=== PATIENT | male | born 1995 | race Caucasian/White ===

== ENCOUNTER 2016-05-30 15:08 | Emergency (ER) | payer MEDICAID ==
[~2016-05-30] VITALS: Wt 86.5 kg
[~2016-05-30 15:08] MED LIST: DAYQUIL; LORA1TAB PO; MECL25TA2 PO
[2016-05-30] MEDS ORDERED: KETOROLAC 15 MG INJ IM STA (16:24)
[2016-05-30] MEDS ORDERED: CYCL-319 PO (16:41)
[2016-05-30] MEDS ORDERED: NAPR-688 PO (16:41)
--- NOTE | 2016-05-30 16:45 | ERD ---
ER Documentation Chief Complaint Date/Time DATE: 05/30/16 TIME: 16:44 Chief Complaint Low back pain for the past few months. no recent trauma just lifting HPI This is a 20-year-old male presenting to the emergency room complaining of bilateral lower back pain for the past 3 months. Patient states the pain is 8 out of 10. He states that he has been to the chiropractor 6 times they have evaluated with x-ray, patient states there is no fracture. Patient states he 400 mg of ibuprofen 2 hours prior to being seen without any relief. Patient denies any saddle anesthesia, bladder or bowel incontinence, ROS All systems reviewed and are negative except as per history of present illness. Medications Home Meds Active Scripts Naproxen* (Naproxen*) 500 Mg Tablet, 500 MG PO BID Y for PAIN, #30 TAB Prov:DERIK ZALDIVAR PA-C 05/30/16 Cyclobenzaprine Hcl* (Cyclobenzaprine Hcl*) 10 Mg Tablet, 10 MG PO TID, #15 TAB Prov:DERIK ZALDIVAR PA-C 05/30/16 Lorazepam* (Lorazepam*) 1 Mg Tablet, 1 MG PO Q8, #10 TAB Prov:WASHINGTON LUNA PA-C 11/30/15 Meclizine Hcl* (Antivert*) 25 Mg Tablet, 25 MG PO Q6H Y for DIZZINESS, #15 TAB Prov:KONRAD CLAYTON DO 10/26/15 Reported Medications [Dayquil] No Conflict Check 03/15/14 Allergies Allergies: Coded Allergies: No Known Allergy (Unverified , 11/30/15) PMhx/Soc History of Surgery: No Anesthesia Reaction: No Hx Neurological Disorder: No Hx Respiratory Disorders: No Hx Cardiac Disorders: Yes (heart murmur when he was a kid) Hx Psychiatric Problems: No Hx Miscellaneous Medical Probl: No Hx Alcohol Use: Yes (occassional) Hx Substance Use: No Hx Tobacco Use: No Smoking Status: Never smoker Physical Exam Vitals Vital Signs Date Time Temp Pulse Resp B/P Pulse Ox O2 Delivery O2 Flow Rate FiO2 05/30/16 15:13 98.5 61 20 130/60 98 Physical Exam GENERAL: WD/WN, in no apparent distress, non-toxic appearing HENT: NC/AT EYES: Conjunctiva normal NECK: Supple PULM: Normal labored breathing CV: Good capillary refill GI: Non-distended, no guarding BACK: no deformities noted, normal spinal curvature, TTP on lumbar region, non- tender on spine midline EXT: No clubbing, cyanosis, or edema NEURO: Moves on all fours, sensation intact, normal gait SKIN: intact PSYCH: Normal mood Results 24 hrs Current Medications Medications (Trade) Dose Ordered Sig/Lucie Route PRN Reason Start Time Stop Time Status Last Admin Dose Admin Ketorolac Tromethamine (Toradol) 15 mg ONCE STAT IM 05/30/16 16:24 05/30/16 16:25 DC 05/30/16 16:34 Procedures/MDM 20-year-old male presents to the ER with lumbar back pain and muscle spasms, low suspicion for spinal abscess, vertebral fracture, cauda equina syndrome, spinal stenosis due to physical examination. Patient was nontender on spine midline, patient ambulating well. This likely due to strain. I have discussed with patient that he is suitable to follow-up with the primary care physician to get a referral to see a orthopedist and physical therapist. In the ED patient was given 50 mg Toradol injection, a prescription for naproxen and Flexeril was provided. Patient is neurovascularly intact. Prescriptions [] was given to patient, discussed to return to the ED if not improving as expected or follow-up with a primary care physician. Patient understood and agreed with this plan. Departure Diagnosis: Primary Impression: Back pain Back pain location: low back pain Chronicity: chronic Back pain laterality : bilateral Sciatica presence: without sciatica Qualified Code: M54.5 - Chronic bilateral low back pain without sciatica Condition: Stable Patient Instructions: Back Basics: A Healthy Spine, Back Care Tips, Back Exercises, Lumbar, Back Pain (Acute Or Chronic), Muscle Spasm Additional Instructions: FOLLOW UP WITH YOUR PRIMARY CARE PHYSICIAN TOMORROW.Return to this facility if you are not improving as expected. Take all medicines as directed. Return to this facility if you are not improving as expected. You have been given a medicine which may cause drowsiness.DO NOT DRIVE OR OPERATE DANGEROUS MACHINERY while taking this medicine! DERIK ZALDIVAR PA-C May 30, 2016 16:45
[2016-05-30 17:05] VITALS: BP 128/60; PULSE 71; RESP 20; TEMP 98.5
== END 2016-05-30 17:14 | disposition home or self-care (01) ==
LOC: FTE 15:08
DX: M54.5 Low back pain (principal)
CPT/HCPCS: 96372; J1885; Z7502

== ENCOUNTER 2016-06-07 14:54 | Emergency (ER) | payer MEDICAID ==
[~2016-06-07] VITALS: Wt 87.0 kg
[~2016-06-07 14:54] MED LIST changes: +CYCL-319 PO; +NAPR-688 PO
[2016-06-07] MEDS ORDERED: KETOROLAC 60 MG INJ IM STA (15:22)
[2016-06-07] MEDS ORDERED: HYDROCODONE/APAP (5/325) TAB PO ONE (15:30)
--- NOTE | 2016-06-07 16:16 | RADRPT ---
PROCEDURE: XR Lumbar Spine. CLINICAL INDICATION: Low back pain. TECHNIQUE: 3 views of the lumbar spine available for review COMPARISON: None available FINDINGS: There is normal mineralization, architecture and alignment. No fractures or osseous lesions are nalini ntified. No subluxation is identified. The disk spaces are unremarkable. The facet joints are unr emarkable. The soft tissues are unremarkable. IMPRESSION: Unremarkable lumbar spine x-ray. RPTAT: [facility] .Kevin Michaels MD, MD Date Time Electronically viewed and signed by .Kevin Michaels MD, on 06/07/2016 16:15 .B/
[2016-06-07] MEDS ORDERED: TRAM50TA2 PO ×2 (16:20→18:49)
[2016-06-07] MEDS ORDERED: IBUP800T25 PO ×2 (16:20→18:49)
--- NOTE | 2016-06-07 16:23 | ERD ---
ER Documentation Chief Complaint Date/Time DATE: 06/07/16 TIME: 16:21 Chief Complaint back pain while lifting weights today x20min ago HPI 20-year-old male complains of acute low back pain for last hour after lifting weights at the gym. He is doing leg presses. He was seen here last week for pain after working and repetitive motion and was improving with medication until he went to the gym today. Denies any bowel bladder incontinence, weakness , radiation, urinary complaints, fevers ROS All systems reviewed and are negative except as per history of present illness. Medications Home Meds Active Scripts Tramadol HCl (Tramadol HCl) 50 Mg Tablet, 50 MG PO Q4 Y for PAIN, #20 TAB Prov:DOUG JACOBS MD 06/07/16 Ibuprofen* (Motrin*) 800 Mg Tab, 800 MG PO Q6, #30 TAB Prov:DOUG JACOBS MD 06/07/16 Naproxen* (Naproxen*) 500 Mg Tablet, 500 MG PO BID Y for PAIN, #30 TAB Prov:DERIK ZALDIVAR PA-C 05/30/16 Cyclobenzaprine Hcl* (Cyclobenzaprine Hcl*) 10 Mg Tablet, 10 MG PO TID, #15 TAB Prov:DERIK ZALDIVAR PA-C 05/30/16 Lorazepam* (Lorazepam*) 1 Mg Tablet, 1 MG PO Q8, #10 TAB Prov:WASHINGTON LUNA PA-C 11/30/15 Meclizine Hcl* (Antivert*) 25 Mg Tablet, 25 MG PO Q6H Y for DIZZINESS, #15 TAB Prov:KONRAD CLAYTON DO 10/26/15 Reported Medications [Dayquil] No Conflict Check 03/15/14 Allergies Allergies: Coded Allergies: No Known Allergy (Unverified , 11/30/15) PMhx/Soc History of Surgery: No Anesthesia Reaction: No Hx Neurological Disorder: No Hx Respiratory Disorders: No Hx Cardiac Disorders: Yes (heart murmur when he was a kid) Hx Psychiatric Problems: No Hx Miscellaneous Medical Probl: No Hx Alcohol Use: Yes (occassional) Hx Substance Use: No Hx Tobacco Use: No Physical Exam Vitals Vital Signs Date Time Temp Pulse Resp B/P Pulse Ox O2 Delivery O2 Flow Rate FiO2 06/07/16 14:58 98.1 105 25 145/71 98 Physical Exam Const: [] Alert, [id number]. Head: Atraumatic Eyes: Normal Conjunctiva ENT: Normal External Ears, Nose and Mouth. Neck: Full range of motion..~ No meningismus. Resp: Clear to auscultation bilaterally Cardio: Regular rate and rhythm, no murmurs Abd: Soft, non tender, non distended. Normal bowel sounds Skin: No petechiae or rashes Back: No midline or flank tenderness there is some tenderness diffusely in L4 -L5 area and sacral area. There is no appreciable midline tenderness or deformities. Patient has normal gait with no appreciable weakness. Patient has mild bilateral straight leg raise. Ext: No cyanosis, or edema Neur: Awake and alert Psych: Normal Mood and Affect Results 24 hrs Current Medications Medications (Trade) Dose Ordered Sig/Lucie Route PRN Reason Start Time Stop Time Status Last Admin Dose Admin Ketorolac Tromethamine (Toradol) 60 mg ONCE STAT IM 06/07/16 15:22 06/07/16 15:24 DC 06/07/16 15:31 Acetaminophen/ Hydrocodone Bitart (Given (5/325)) 1 tab ONCE ONCE PO 06/07/16 15:30 06/07/16 15:31 DC 06/07/16 15:31 Procedures/MDM Patient was given Toradol 60 mg IM and Given 5 mg by mouth. X-ray LS-Spine 3V Interpreted by me: Bones: No fracture, or lytic lesions Joints: No dislocation Foreign body: None. Impression abnormal lumbar spine x-ray Patient had signs and symptoms of acute lumbar strain without evidence of epidural abscess, cauda equina syndrome, fracture, dislocation, neurologic deficit. He will be treated with tramadol and ibuprofen instructions for back exercises. Patient is advised to follow-up with his primary doctor for possible referral or further evaluation and treatment return for fevers, weakness, new or worsening symptoms as directed after instructions were Departure Diagnosis: Primary Impression: Back pain Back pain location: low back pain Chronicity: acute Back pain laterality: bilateral Sciatica presence: without sciatica Qualified Code: M54.5 - Acute bilateral low back pain without sciatica Condition: Stable Patient Instructions: Back Exercises, Lumbar, Back Pain (Acute Or Chronic) Additional Instructions: X-ray read as normal. Likely sprain. Recommend stretching and rest at home. Recheck with primary doctor possibly orthopedist for some pain and further treatment. DOUG JACOBS MD Jun 07, 2016 16:23
[2016-06-07 19:30] VITALS: BP 124/77; PULSE 88; RESP 18; TEMP 98.3
== END 2016-06-07 20:49 | disposition home or self-care (01) ==
LOC: FTE 14:54
DX: S39.92XA Unspecified injury of lower back, initial encounter (principal); X50.0XXA Overexertion from strenuous movement or load, initial encounter; Y92.9 Unspecified place or not applicable
CPT/HCPCS: 72100; 96372; J1885; Z7502; Z7610

== ENCOUNTER 2016-07-19 10:54 | Emergency (ER) | payer MEDICAID ==
[~2016-07-19] VITALS: Ht 157.5 cm; Wt 78.9 kg
[~2016-07-19 10:54] MED LIST changes: +IBUP800T25 PO; +TRAM50TA2 PO
[2016-07-19 11:04] VITALS: Ht 157.5 cm; Wt 78.9 kg
[2016-07-19] MEDS ORDERED: ACETAMINOPHEN 500 MG TAB PO STA (13:22)
[2016-07-19] MEDS ORDERED: LIDOCAINE 2% VISC 15 ML CUP PO ONE (13:30)
[2016-07-19] MEDS ORDERED: TYL500 PO (14:30)
[2016-07-19] MEDS ORDERED: D-ME473S18 PO (14:30)
--- NOTE | 2016-07-19 14:38 | ERD ---
ER Documentation Chief Complaint Date/Time DATE: 07/19/16 TIME: 14:37 Chief Complaint HPI This is a 20-year-old male presents to the ER with a sore throat, cough, runny nose, headache, fever that started 2 days ago. Patient has been taking DayQuil for his symptoms and states that this helped however this morning his throat was hurting a lot so he decided not to go to work. Patient denies any chest pain or shortness of breath. There are no sick contacts at home. ROS 12 point review of systems was done, all negative except per HPI. Medications Home Meds Active Scripts Acetaminophen* (Tylenol*) 500 Mg Tab, 1000 MG PO Q8H Y for PAIN AND OR ELEVATED TEMP for 3 Days, TAB Prov:RENNY WEBB 07/19/16 Dextromethorphan Hb-Promethazine Hcl (Promethazine DM Syrup) 473 Ml Syrup, 10 ML PO Q6H Y for COUGH, #4 OZ Prov:RENNY WEBB 07/19/16 Ibuprofen* (Motrin*) 800 Mg Tab, 800 MG PO Q6, #30 TAB Prov:DOUG JACOBS MD 06/07/16 Tramadol HCl (Tramadol HCl) 50 Mg Tablet, 50 MG PO Q4 Y for PAIN, #20 TAB Prov:DOUG JACOBS MD 06/07/16 Naproxen* (Naproxen*) 500 Mg Tablet, 500 MG PO BID Y for PAIN, #30 TAB Prov:DERIK ZALDIVAR PA-C 05/30/16 Cyclobenzaprine Hcl* (Cyclobenzaprine Hcl*) 10 Mg Tablet, 10 MG PO TID, #15 TAB Prov:DERIK ZALDIVAR PA-C 05/30/16 Lorazepam* (Lorazepam*) 1 Mg Tablet, 1 MG PO Q8, #10 TAB Prov:WASHINGTON LUNA PA-C 11/30/15 Meclizine Hcl* (Antivert*) 25 Mg Tablet, 25 MG PO Q6H Y for DIZZINESS, #15 TAB Prov:KONRAD CLAYTON DO 10/26/15 Reported Medications [Dayquil] No Conflict Check 03/15/14 Allergies Allergies: Coded Allergies: No Known Allergy (Unverified , 11/30/15) PMhx/Soc History of Surgery: No Anesthesia Reaction: No Hx Neurological Disorder: No Hx Respiratory Disorders: No Hx Cardiac Disorders: Yes (heart murmur when he was a kid) Hx Psychiatric Problems: No Hx Miscellaneous Medical Probl: No Hx Alcohol Use: Yes (occassional) Hx Substance Use: No Hx Tobacco Use: No Physical Exam Vitals Vital Signs Date Time Temp Pulse Resp B/P Pulse Ox O2 Delivery O2 Flow Rate FiO2 07/19/16 11:04 99.2 67 20 137/67 99 Physical Exam GENERAL: The patient is well-developed, well-nourished, in no acute distress. NECK: Cervical spine is non tender with no step off. Supple, no nuchal rigidity HEENT: Atraumatic. Pupils equal, round and reactive to light. Extraocular muscles are grossly intact. Conjunctivae pink, no discharge. Bilateral tympanic membranes are clear with no evidence of erythema, effusion or dulling of the light reflex. Tonsilar erythema with no exudates or uvular deviation. Clear rhinorrhea. RESPIRATORY: Clear to auscultation bilaterally. There are no rales, wheezes or rhonchi. HEART: Regular rate and rhythm. No murmurs, clicks, rubs or gallops. EXTREMITIES: No clubbing or cyanosis. Full range of motion. Grossly neurovascularly intact. NEUROLOGIC: Alert and oriented. Cranial nerves II through XII are intact. SKIN: There is no rash. The skin is warm and dry. Results 24 hrs Current Medications Medications (Trade) Dose Ordered Sig/Lucie Route PRN Reason Start Time Stop Time Status Last Admin Dose Admin Lidocaine (Xylocaine (Viscous)) 15 ml ONCE ONCE PO 07/19/16 13:30 07/19/16 13:31 DC 07/19/16 13:27 Acetaminophen (Tylenol Tab) 1,000 mg ONCE STAT PO 07/19/16 13:22 07/19/16 13:23 DC 07/19/16 13:27 Procedures/MDM Differential diagnosis includes but is not limited to; Viral URI, allergic rhinitis, bronchitis, pertussis,pneumonia. This is likely viral in etiology. Clinical suspicion for pneumonia is low as patient appears well, is not hypoxic or in any respiratory distress. Additionally, patients physical examination is benign. Plan was discussed with patient they understand and agree. Patient needs to follow up with PCP in 1-2 days or return to ER sooner if symptoms worsen. Departure Diagnosis: Primary Impression: Upper respiratory infection Condition: Stable Patient Instructions: Preventing Common Respiratory Infections Additional Instructions: Call your primary care doctor TOMORROW for an appointment during the next 1-2 days.See the doctor sooner or return here if your condition worsens before your appointment time. RENNY WEBB Jul 19, 2016 14:38
== END 2016-07-19 14:49 | disposition home or self-care (01) ==
LOC: FTE 10:54
DX: J06.9 Acute upper respiratory infection, unspecified (principal)
CPT/HCPCS: Z7502; Z7610; 99283

== ENCOUNTER 2016-07-23 12:35 | Emergency (ER) | payer MEDICAID ==
[~2016-07-23] VITALS: Ht 172.7 cm; Wt 84.5 kg
[~2016-07-23 12:35] MED LIST changes: +D-ME473S18 PO; +TYL500 PO
[2016-07-23 13:05] VITALS: Ht 172.7 cm; Wt 84.5 kg
[2016-07-23] MEDS ORDERED: GUAI-111 PO (14:30)
[2016-07-23] MEDS ORDERED: AZIT250T94 PO (14:33)
--- NOTE | 2016-07-23 14:36 | ERA ---
ER Documentation Chief Complaint Date/Time DATE: 07/23/16 TIME: 14:34 Chief Complaint cough and congestion tx with promethazine HPI Patient returns to the emergency department after having symptoms of upper respiratory infection 7 days. Patient strep promethazine does not like the light makes him feel. Patient still has symptoms that are not lessening. Patient has not tried any other medications. ROS All systems reviewed and are negative except as per history of present illness. Medications Home Meds Active Scripts Azithromycin* (Zithromax*) 250 Mg Tablet, 250 MG PO .ZPACK DIRECTED for 5 Days, #6 TAB TAKE 500 MG (2 TABS) THE FIRST DAY THEN 250 MG (1 TAB) DAYS 2-5 Prov:BECKIE LEWIS PA-C 07/23/16 Guaifenesin/Pseudoephedrne HCl (Mucinex D ER 600-60 mg Tablet) 1 Each Tab.er.12h , 1 EACH PO BID for 7 Days, TAB Prov:BECKIE LEWIS PA-C 07/23/16 Acetaminophen* (Tylenol*) 500 Mg Tab, 1000 MG PO Q8H Y for PAIN AND OR ELEVATED TEMP for 3 Days, TAB Prov:RENNY WEBB 07/19/16 Dextromethorphan Hb-Promethazine Hcl (Promethazine DM Syrup) 473 Ml Syrup, 10 ML PO Q6H Y for COUGH, #4 OZ Prov:RENNY WEBB 07/19/16 Ibuprofen* (Motrin*) 800 Mg Tab, 800 MG PO Q6, #30 TAB Prov:DOUG JACOBS MD 06/07/16 Tramadol HCl (Tramadol HCl) 50 Mg Tablet, 50 MG PO Q4 Y for PAIN, #20 TAB Prov:DOUG JACOBS MD 06/07/16 Naproxen* (Naproxen*) 500 Mg Tablet, 500 MG PO BID Y for PAIN, #30 TAB Prov:DERIK ZALDIVAR PA-C 05/30/16 Cyclobenzaprine Hcl* (Cyclobenzaprine Hcl*) 10 Mg Tablet, 10 MG PO TID, #15 TAB Prov:DERIK ZALIDVAR PA-C 05/30/16 Lorazepam* (Lorazepam*) 1 Mg Tablet, 1 MG PO Q8, #10 TAB Prov:WASHINGTON LUNA PA-C 11/30/15 Meclizine Hcl* (Antivert*) 25 Mg Tablet, 25 MG PO Q6H Y for DIZZINESS, #15 TAB Prov:KONRAD CLAYTON DO 10/26/15 Reported Medications [Dayquil] No Conflict Check 03/15/14 Allergies Allergies: Coded Allergies: No Known Allergy (Unverified , 11/30/15) PMhx/Soc History of Surgery: No Anesthesia Reaction: No Hx Neurological Disorder: No Hx Respiratory Disorders: No Hx Cardiac Disorders: Yes (heart murmur when he was a kid) Hx Psychiatric Problems: No Hx Miscellaneous Medical Probl: No Hx Alcohol Use: Yes (occassional) Hx Substance Use: No Hx Tobacco Use: No Physical Exam Vitals Vital Signs Date Time Temp Pulse Resp B/P Pulse Ox O2 Delivery O2 Flow Rate FiO2 07/23/16 13:05 98.4 84 20 138/73 98 Physical Exam Const: No acute distress Head: Atraumatic Eyes: Normal Conjunctiva ENT: Normal External Ears, Nose and Mouth. Neck: Full range of motion..~ No meningismus. Resp: Clear to auscultation bilaterally Cardio: Regular rate and rhythm, no murmurs Abd: Soft, non tender, non distended. Normal bowel sounds Skin: No petechiae or rashes Back: No midline or flank tenderness Ext: No cyanosis, or edema Neur: Awake and alert Psych: Normal Mood and Affect Procedures/MDM Patient comes to clinic with a upper respiratory infection 7 days. At this time with an unremarkable physical exam, I am advising him to consider over-the- counter Mucinex D, and writing a prescription for Z-Aquilino because he reports a fever and duration of symptoms. Departure Diagnosis: Primary Impression: URI (upper respiratory infection) Condition: Stable Patient Instructions: Preventing Common Respiratory Infections Additional Instructions: Return to ED if symptoms worsen. BECKIE LEWIS PA-C Jul 23, 2016 14:36
== END 2016-07-23 14:41 | disposition home or self-care (01) ==
LOC: E/R 12:35
DX: J06.9 Acute upper respiratory infection, unspecified (principal)
CPT/HCPCS: 99283

== ENCOUNTER 2017-08-07 02:52 | Emergency (ER) | END 2017-08-07 05:50 | disposition home or self-care (01) ==